=== PATIENT | male | born 1950 | race Caucasian/White ===

== ENCOUNTER 2016-05-17 11:55 | Inpatient (IN) | payer BC ==
[~2016-05-17] VITALS: Ht 182.9 cm; Wt 72.6 kg
[2016-05-17 12:29] LABS: BASOPHILS # (AUTO) 2.6 /CMM (0.0-0.2); EOSINOPHILS # (AUTO) 0.1 /CMM (0.0-0.7); EOSINOPHILS % (AUTO) 0.3 % (0.0-6.0); HEMATOCRIT 43 % (39-51); HEMOGLOBIN 14.5 g/dL (13.5-17.5); LYMPHOCYTES # (AUTO) 4.8 /CMM (0.8-4.8); LYMPHOCYTES % (AUTO) 26.7 % (20.0-44.0); MEAN CORPUSCULAR HEMOGLOBIN 32 PG (26.0-33.0); MEAN CORPUSCULAR HGB CONC 33 g/dl (31.0-36.0); MEAN CORPUSCULAR VOLUME 97 fL (80-96); MONOCYTES # (AUTO) 0.9 /CMM (0.1-1.30); MONOCYTES % (AUTO) 4.8 % (2.0-12.0); NEUTROPHILS # (AUTO) 9.6 /CMM (1.8-8.9); NEUTROPHILS % (AUTO) 53.8 % (43.0-81.0); PLATELET COUNT (AUTO) 319 /CMM (150-450); RED BLOOD CELL COUNT(AUTO) 4.48 MIL/uL (4.5-6.0)
[2016-05-17 12:30] LABS: BASOPHILS % (AUTO) 14.4 % (0.0-2.0); DIFF TOTAL % 100 %
[2016-05-17] MEDS ORDERED: IV NS 0.9% 1,000 ML BAG IV ONE ×2 (12:30→13:30)
[2016-05-17] MEDS ORDERED: IV SET PRIMARY 1 EA INFUS.SET MC ONE ×2 (12:34→13:56)
[2016-05-17] MEDS ORDERED: IV NS 0.9% 1,000 ML ONE (12:34)
[2016-05-17 12:37] LABS: ANION GAP 12 (5-14); CALCIUM, SERUM 7.6 mg/dL (8.5-10.1); CARBON DIOXIDE 30 mmol/L (21-32); CHLORIDE 96 mmol/L (98-107); CREATININE 0.6 mg/dL (0.6-1.3); GFR 136 mL/min (>60); GLUCOSE 121 mg/dL (74-106); POTASSIUM 3.2 mmol/L (3.5-5.1); SODIUM SERUM 134 mmol/L (136-145); UREA NITROGEN, BLOOD 5 mg/dL (7-18)
[2016-05-17 12:53] LABS: ALANINE AMINOTRANSFERASE 15 U/L (12-78); ASPARTATE AMINOTRANSFERASE 36 U/L (15-37); BILIRUBIN,DIRECT 0.5 mg/dL (0.0-0.2); INDIRECT BILIRUBIN 0.5 mg/dL (0.0-1.1); SALICYLATE 2.8 mg/dL (2.8-20.0); TOTAL PROTEIN, SERUM 6.8 g/dL (6.4-8.2)
[2016-05-17 12:54] LABS: ACETAMINOPHEN 0 ug/ml (10-30)
[2016-05-17 12:58] LABS: INR 1.4 (0.87-1.13); PROTHROMBIN TIME 14.7 SECS (9.5-12.7)
[2016-05-17 13:28] LABS: ADD UA MICROSCOPIC YES; KETONES,URINE Negative (NEGATIVE); LEUKOCYTE ESTERASE ,URINE Negative (NEGATIVE); PH,URINE 8.5 (5.0-8.0)
[2016-05-17] MEDS ORDERED: IV NS 0.9% 250 ML IV ONE (13:28)
[2016-05-17] MEDS ORDERED: IOHEXOL-300 100 ML VIAL IV ONE (13:28)
[2016-05-17] MEDS ORDERED: CT SWABBABLE VALVE TRANS SET 1 EA INFUS.SET MC ONE (13:28)
[2016-05-17 13:29] LABS: ADD URINE CULTURE NO; WBC,URINE 0-2 /HPF (0-3)
[2016-05-17] MEDS ORDERED: VANCOMYCIN 1 GM in IV D5W 250 ML IV ONE (13:30)
[2016-05-17] MEDS ORDERED: PIPERACILLIN /TAZOBACTAM 3.375 G in IV D5W 50 ML IV ONE (13:30)
[2016-05-17] MEDS ORDERED: LEVOFLOXACIN 750 MG /D5W 150ML 150 ML IV ONE ×2 (13:30→13:56)
[2016-05-17 13:34] LABS: CANNABINOID, URINE NEGATIVE (NEGATIVE); PHENCYCLIDINE SCREEN,URINE NEGATIVE (NEGATIVE)
[2016-05-17 13:50] LABS: LYMPHOCYTES % (MANUAL) 20 % (16-48); PLATELET ESTIMATE ADEQUATE
[2016-05-17] MEDS ORDERED: IV NS 0.9% 2,000 ML ONE (13:56)
[2016-05-17] MEDS ORDERED: IV SET PRIMARY PUMP SET 1 EA INFUS.SET MC ONE ×2 (13:57→19:39)
[2016-05-17] MEDS ORDERED: CITA40TA11 PO (13:58)
[2016-05-17] MEDS ORDERED: GABA-534 PO (13:58)
[2016-05-17] MEDS ORDERED: HYDR-3028 PO (13:58)
[2016-05-17] MEDS ORDERED: IBUP-1482 PO (13:58)
[2016-05-17] MEDS ORDERED: TIOT18CA3 IH (13:58)
[2016-05-17] MEDS ORDERED: CLON1TAB4 PO (13:58)
[2016-05-17] MEDS ORDERED: FLUT1DIS3 IH (13:58)
[2016-05-17] MEDS ORDERED: DISU250T7 PO (13:59)
[2016-05-17] MEDS ORDERED: ATOR10TA PO (14:00)
[2016-05-17 17:15] VITALS: BP 111/70
[2016-05-17] MEDS ORDERED: PIPERACILLIN /TAZOBACTAM 3.375 G in IV D5W 50 ML IV SCH ×4 (18:00)
[2016-05-17] MEDS: NICOTINE PATCH (14MG) 14 MG PATCH.TD24 TD SCH (18:08)
[2016-05-17] MEDS: NYSTATIN (PYXIS) 500,000 UNIT/5 ML ORAL.SUSP PO SCH (18:08)
[2016-05-17] MEDS: FLUCONAZOLE (100 MG) 100 MG TABLET PO SCH (18:08)
[2016-05-17] MEDS ORDERED: IV NS 0.9% 1,000 ML IV PRN (18:10)
[2016-05-17] MEDS ORDERED: HYDROCODONE/APAP 5/325MG 1 EACH TABLET PO PRN (18:30)
[2016-05-17] MEDS ORDERED: LEVOFLOXACIN 750 MG /D5W 150ML 750 MG in PREMIX 1 EA IV SCH (18:30)
[2016-05-17] MEDS ORDERED: MAGNESIUM HYDROXIDE 30 ML UDC PO PRN (18:30)
[2016-05-17] MEDS: PANTOPRAZOLE 40 MG TABLET.DR PO SCH (18:30)
[2016-05-17] MEDS: THIAMINE HCL 100 MG TABLET PO SCH (18:30)
[2016-05-17] MEDS ORDERED: ONDANSETRON HCL/PF 4 MG/2 ML VIAL IVP PRN (18:30)
[2016-05-17] MEDS ORDERED: Z GUARD REMEDY 2 OZ OINT TP PRN (18:30)
[2016-05-17] MEDS ORDERED: MAG HYDROX/AL HYDROX/SIMETH 30 ML UDC PO PRN (18:30)
[2016-05-17] MEDS ORDERED: ACETAMINOPHEN 325 MG TABLET PO PRN (18:30)
[2016-05-17] MEDS ORDERED: FEE PK DOSING 1 MIN EA MC ONE (18:41)
[2016-05-17] MEDS ORDERED: SECONDARY IV SET 1 EA INFUS.SET MC ONE (19:39)
[2016-05-17] MEDS: PIPERACILLIN /TAZOBACTAM 4.5 G in IV D5W 50 ML IV SCH (19:43)
[2016-05-17 20:00] VITALS: BP 106/74
[2016-05-17 20:02] VITALS: BP 106/74
[2016-05-17] MEDS: ZOLPIDEM TARTRATE 5 MG TABLET PO PRN (21:07)
[2016-05-17] MEDS ORDERED: IV PREMIX NS +20MEQ KCL 1 L IV ONE (23:49)
[2016-05-17] MEDS: Potassium Chloride 20 MEQ in IV NS 0.9% 1,000 ML IV PRN (23:58)
[2016-05-18] VITALS (8 sets, daily range): BP systolic 100–112; BP diastolic 61–72
[2016-05-18] MEDS ORDERED: ZOLPIDEM TARTRATE 5 MG TABLET ONE (00:09)
[2016-05-18] MEDS: ZOLPIDEM TARTRATE 5 MG TABLET PO PRN ×2 (00:12→21:51)
[2016-05-18] MEDS: VANCOMYCIN 1 GM in IV D5W 250 ML IV SCH ×2 (00:16→12:25)
[2016-05-18] MEDS ORDERED: ZOLPIDEM TARTRATE 5 MG TABLET PO ONE (00:30)
[2016-05-18] MEDS ORDERED: ZOLPIDEM TARTRATE 5 MG TABLET PO PRN (00:30)
[2016-05-18] MEDS: PIPERACILLIN /TAZOBACTAM 4.5 G in IV D5W 50 ML IV SCH ×4 (01:10→17:30)
[2016-05-18 07:03] LABS: CHOLESTEROL 59 mg/dL (<200); HDL CHOLESTEROL < 10 mg/dL (40-60); LDL 38 mg/dL (0-99); TRIGLYCERIDES 87 mg/dL (30-150)
[2016-05-18 07:05] LABS: BASOPHILS % (AUTO) 0.1 % (0.0-2.0); DIFF TOTAL % 100 %; EOSINOPHILS # (AUTO) 0.1 /CMM (0.0-0.7); EOSINOPHILS % (AUTO) 0.4 % (0.0-6.0); HEMATOCRIT 39 % (39-51); HEMOGLOBIN 13.2 g/dL (13.5-17.5); LYMPHOCYTES # (AUTO) 2.4 /CMM (0.8-4.8); LYMPHOCYTES % (AUTO) 15.2 % (20.0-44.0); MEAN CORPUSCULAR HEMOGLOBIN 33 PG (26.0-33.0); MEAN CORPUSCULAR HGB CONC 34 g/dl (31.0-36.0); MEAN CORPUSCULAR VOLUME 97 fL (80-96); MONOCYTES # (AUTO) 0.5 /CMM (0.1-1.30); MONOCYTES % (AUTO) 3.1 % (2.0-12.0); NEUTROPHILS # (AUTO) 12.7 /CMM (1.8-8.9); NEUTROPHILS % (AUTO) 81.2 % (43.0-81.0); PLATELET COUNT (AUTO) 295 /CMM (150-450); RED BLOOD CELL COUNT(AUTO) 4.01 MIL/uL (4.5-6.0); WHITE BLOOD COUNT (AUTO) 15.7 K/uL (4.3-11.0)
[2016-05-18 07:15] LABS: ALANINE AMINOTRANSFERASE 16 U/L (12-78); ANION GAP 13 (5-14); ASPARTATE AMINOTRANSFERASE 43 U/L (15-37); BILIRUBIN,TOTAL 0.8 mg/dL (0.2-1.0); CALCIUM, SERUM 7.1 mg/dL (8.5-10.1); CARBON DIOXIDE 26 mmol/L (21-32); CHLORIDE 102 mmol/L (98-107); CREATININE 0.6 mg/dL (0.6-1.3); GFR 136 mL/min (>60); GLUCOSE 98 mg/dL (74-106); PHOSPHORUS 2.3 mg/dL (2.5-4.9); SODIUM SERUM 138 mmol/L (136-145); TOTAL PROTEIN, SERUM 6.2 g/dL (6.4-8.2); UREA NITROGEN, BLOOD 2 mg/dL (7-18)
[2016-05-18 07:18] LABS: ALBUMIN 0.9 g/dL (3.4-5.0)
[2016-05-18] MEDS: NYSTATIN (PYXIS) 500,000 UNIT/5 ML ORAL.SUSP PO SCH ×3 (09:12→16:14)
[2016-05-18] MEDS: NICOTINE PATCH (14MG) 14 MG PATCH.TD24 TD SCH (09:12)
[2016-05-18] MEDS: THIAMINE HCL 100 MG TABLET PO SCH (09:12)
[2016-05-18] MEDS: PANTOPRAZOLE 40 MG TABLET.DR PO SCH (09:12)
[2016-05-18] MEDS: FLUCONAZOLE (100 MG) 100 MG TABLET PO SCH (09:12)
[2016-05-18] MEDS: IPRATROPIUM NEB FS 0.5 MG/2.5 ML AMPUL.NEB NEB SCH ×4 (11:11→23:28)
[2016-05-18] MEDS: ALBUTEROL FS 2.5 MG/0.5 ML VIAL.NEB NEB SCH ×4 (11:11→23:28)
[2016-05-18] MEDS ORDERED: SECONDARY IV SET 1 EA INFUS.SET MC ONE (11:12)
[2016-05-18] MEDS ORDERED: IV SET PRIMARY PUMP SET 1 EA INFUS.SET MC ONE (11:27)
[2016-05-18] MEDS: Magnesium 1GM/D5W 100ML PREMIX 100 ML IV SCH ×2 (11:27→12:25)
[2016-05-18 11:31] LABS: BAND % (MANUAL) 2 % (0.0-5.0); EOSINOPHILS % (MANUAL) 2 % (0-4); LYMPHOCYTES % (MANUAL) 9 % (16-48)
[2016-05-18 11:32] LABS: ANISOCYTOSIS 1+
[2016-05-18] MEDS: LEVOFLOXACIN 750 MG /D5W 150ML 150 ML IV SCH (14:02)
[2016-05-18] MEDS ORDERED: K PHOS NEUTRAL 250 MG TABLET PO ONE (16:00)
[2016-05-18] MEDS: LACTOBACILLUS RHAMNOSUS GG 1 EACH CAP.SPRINK PO SCH (16:14)
[2016-05-18] MEDS ORDERED: POTASSIUM CHLORIDE 20 MEQ TAB.PRT.SR PO ONE ×2 (22:00→22:21)
[2016-05-19] MEDS: Potassium Chloride 20 MEQ in IV NS 0.9% 1,000 ML IV PRN (00:46)
[2016-05-19] MEDS: PIPERACILLIN /TAZOBACTAM 4.5 G in IV D5W 50 ML IV SCH ×5 (00:47→23:11)
[2016-05-19] MEDS: ALBUTEROL FS 2.5 MG/0.5 ML VIAL.NEB NEB SCH ×6 (03:30→23:30)
[2016-05-19] MEDS: IPRATROPIUM NEB FS 0.5 MG/2.5 ML AMPUL.NEB NEB SCH ×6 (03:30→23:30)
[2016-05-19 07:44] LABS: CALCIUM, SERUM 7.2 mg/dL (8.5-10.1); PHOSPHORUS 2.8 mg/dL (2.5-4.9); POTASSIUM 2.9 mmol/L (3.5-5.1)
[2016-05-19 08:00] VITALS: BP 103/60
[2016-05-19 08:34] LABS: BASOPHILS % (AUTO) 0.3 % (0.0-2.0); DIFF TOTAL % 100 %; EOSINOPHILS # (AUTO) 0.1 /CMM (0.0-0.7); EOSINOPHILS % (AUTO) 0.6 % (0.0-6.0); HEMATOCRIT 40 % (39-51); HEMOGLOBIN 13.4 g/dL (13.5-17.5); LYMPHOCYTES % (AUTO) 15.6 % (20.0-44.0); MEAN CORPUSCULAR HEMOGLOBIN 32 PG (26.0-33.0); MEAN CORPUSCULAR HGB CONC 33 g/dl (31.0-36.0); MEAN CORPUSCULAR VOLUME 97 fL (80-96); MONOCYTES # (AUTO) 0.5 /CMM (0.1-1.30); MONOCYTES % (AUTO) 3.6 % (2.0-12.0); NEUTROPHILS % (AUTO) 79.9 % (43.0-81.0); PLATELET COUNT (AUTO) 302 /CMM (150-450); RED BLOOD CELL COUNT(AUTO) 4.15 MIL/uL (4.5-6.0); WHITE BLOOD COUNT (AUTO) 12.5 K/uL (4.3-11.0)
[2016-05-19 08:40] LABS: CREATININE 0.7 mg/dL (0.6-1.3)
[2016-05-19] MEDS: NYSTATIN (PYXIS) 500,000 UNIT/5 ML ORAL.SUSP PO SCH ×3 (08:55→16:56)
[2016-05-19] MEDS: PANTOPRAZOLE 40 MG TABLET.DR PO SCH (08:55)
[2016-05-19] MEDS: FLUCONAZOLE (100 MG) 100 MG TABLET PO SCH (08:55)
[2016-05-19] MEDS: NICOTINE PATCH (14MG) 14 MG PATCH.TD24 TD SCH (08:55)
[2016-05-19] MEDS: LACTOBACILLUS RHAMNOSUS GG 1 EACH CAP.SPRINK PO SCH ×2 (08:55→16:56)
[2016-05-19] MEDS: THIAMINE HCL 100 MG TABLET PO SCH (08:55)
[2016-05-19 09:41] LABS: BAND % (MANUAL) 5 % (0.0-5.0); EOSINOPHILS % (MANUAL) 1 % (0-4); LYMPHOCYTES % (MANUAL) 15 % (16-48); PLATELET ESTIMATE ADEQUATE
[2016-05-19 09:42] LABS: ANISOCYTOSIS 1+
[2016-05-19] MEDS: POTASSIUM CHLORIDE 20 MEQ TAB.PRT.SR PO SCH ×2 (10:35→11:39)
[2016-05-19] MEDS: Magnesium 1GM/D5W 100ML PREMIX 100 ML IV SCH ×2 (10:36→11:39)
[2016-05-19] MEDS: LEVOFLOXACIN 750 MG /D5W 150ML 150 ML IV SCH (13:09)
[2016-05-19 16:00] VITALS: BP_SYST 101; BP_SYST 103; BP_DIAS 60; BP_DIAS 62
[2016-05-19 18:00] VITALS: BP 103/60
[2016-05-19 20:00] VITALS: BP 133/92
[2016-05-19] MEDS: ZOLPIDEM TARTRATE 5 MG TABLET PO PRN (22:29)
[2016-05-20] MEDS: IPRATROPIUM NEB FS 0.5 MG/2.5 ML AMPUL.NEB NEB SCH ×6 (03:30→23:30)
[2016-05-20] MEDS: ALBUTEROL FS 2.5 MG/0.5 ML VIAL.NEB NEB SCH ×6 (03:30→23:30)
[2016-05-20] MEDS: PIPERACILLIN /TAZOBACTAM 4.5 G in IV D5W 50 ML IV SCH ×3 (05:15→17:07)
[2016-05-20 07:47] LABS: CALCIUM, SERUM 7.4 mg/dL (8.5-10.1); CREATININE 0.6 mg/dL (0.6-1.3); POTASSIUM 3.3 mmol/L (3.5-5.1)
[2016-05-20 08:00] VITALS: BP 131/84
[2016-05-20] MEDS: THIAMINE HCL 100 MG TABLET PO SCH (08:34)
[2016-05-20] MEDS: NICOTINE PATCH (14MG) 14 MG PATCH.TD24 TD SCH (08:34)
[2016-05-20] MEDS: NYSTATIN (PYXIS) 500,000 UNIT/5 ML ORAL.SUSP PO SCH ×3 (08:34→16:00)
[2016-05-20] MEDS: LACTOBACILLUS RHAMNOSUS GG 1 EACH CAP.SPRINK PO SCH ×2 (08:34→16:00)
[2016-05-20] MEDS: FLUCONAZOLE (100 MG) 100 MG TABLET PO SCH (08:34)
[2016-05-20] MEDS: PANTOPRAZOLE 40 MG TABLET.DR PO SCH (09:05)
[2016-05-20] MEDS: Potassium Chloride 20 MEQ in IV NS 0.9% 1,000 ML IV PRN (12:05)
[2016-05-20] MEDS: LEVOFLOXACIN 750 MG /D5W 150ML 150 ML IV SCH (13:29)
[2016-05-20] MEDS ORDERED: POTASSIUM CHLORIDE 20 MEQ TAB.PRT.SR PO ONE (15:30)
[2016-05-20 16:04] VITALS: BP 115/78
[2016-05-20 20:00] VITALS: BP 100/70
[2016-05-20] MEDS: ZOLPIDEM TARTRATE 5 MG TABLET PO PRN (20:55)
[2016-05-20 21:00] VITALS: BP 95/70
[2016-05-21] MEDS: PIPERACILLIN /TAZOBACTAM 4.5 G in IV D5W 50 ML IV SCH ×4 (00:08→17:25)
[2016-05-21] MEDS: IPRATROPIUM NEB FS 0.5 MG/2.5 ML AMPUL.NEB NEB SCH ×6 (03:30→23:42)
[2016-05-21] MEDS: ALBUTEROL FS 2.5 MG/0.5 ML VIAL.NEB NEB SCH ×6 (03:30→23:42)
[2016-05-21 07:23] LABS: CALCIUM, SERUM 7.5 mg/dL (8.5-10.1); CREATININE 0.6 mg/dL (0.6-1.3); POTASSIUM 3.8 mmol/L (3.5-5.1)
[2016-05-21 08:00] VITALS: BP 121/83
[2016-05-21] MEDS: FLUCONAZOLE (100 MG) 100 MG TABLET PO SCH (09:00)
[2016-05-21] MEDS: NICOTINE PATCH (14MG) 14 MG PATCH.TD24 TD SCH (09:00)
[2016-05-21] MEDS: LACTOBACILLUS RHAMNOSUS GG 1 EACH CAP.SPRINK PO SCH ×2 (09:00→16:07)
[2016-05-21] MEDS: PANTOPRAZOLE 40 MG TABLET.DR PO SCH (09:00)
[2016-05-21] MEDS: NYSTATIN (PYXIS) 500,000 UNIT/5 ML ORAL.SUSP PO SCH ×3 (09:00→16:07)
[2016-05-21] MEDS: THIAMINE HCL 100 MG TABLET PO SCH (09:00)
[2016-05-21] MEDS: Potassium Chloride 20 MEQ in IV NS 0.9% 1,000 ML IV PRN (12:08)
[2016-05-21] MEDS: LEVOFLOXACIN 750 MG /D5W 150ML 150 ML IV SCH (13:17)
[2016-05-21 16:00] VITALS: BP 113/78
[2016-05-21 20:00] VITALS: BP 121/85
[2016-05-21] MEDS: ZOLPIDEM TARTRATE 5 MG TABLET PO PRN (23:42)
[2016-05-22] MEDS: PIPERACILLIN /TAZOBACTAM 4.5 G in IV D5W 50 ML IV SCH ×3 (00:13→11:48)
[2016-05-22] MEDS: IPRATROPIUM NEB FS 0.5 MG/2.5 ML AMPUL.NEB NEB SCH ×3 (03:30→11:46)
[2016-05-22] MEDS: ALBUTEROL FS 2.5 MG/0.5 ML VIAL.NEB NEB SCH ×3 (03:30→11:46)
[2016-05-22 07:53] LABS: CALCIUM, SERUM 7.6 mg/dL (8.5-10.1); CREATININE 0.6 mg/dL (0.6-1.3); POTASSIUM 3.3 mmol/L (3.5-5.1)
[2016-05-22 08:00] VITALS: BP_SYST 113; BP_SYST 123; BP_DIAS 75; BP_DIAS 84
[2016-05-22] MEDS: PANTOPRAZOLE 40 MG TABLET.DR PO SCH (08:34)
[2016-05-22] MEDS: THIAMINE HCL 100 MG TABLET PO SCH (08:34)
[2016-05-22] MEDS: NYSTATIN (PYXIS) 500,000 UNIT/5 ML ORAL.SUSP PO SCH ×2 (08:34→12:54)
[2016-05-22] MEDS: NICOTINE PATCH (14MG) 14 MG PATCH.TD24 TD SCH (08:34)
[2016-05-22] MEDS: FLUCONAZOLE (100 MG) 100 MG TABLET PO SCH (08:34)
[2016-05-22] MEDS: LACTOBACILLUS RHAMNOSUS GG 1 EACH CAP.SPRINK PO SCH (08:34)
[2016-05-22] MEDS ORDERED: POTASSIUM CHLORIDE 20 MEQ TAB.PRT.SR PO ONE (10:00)
== END 2016-05-22 15:15 | disposition home or self-care (01) | DRG 871 ==
LOC: ER 11:59 → TELE 16:34 → MED 05-18 11:27
PROVIDERS: ADMIT Internal Medicine; ATTEND Internal Medicine
DX: A41.9 Sepsis, unspecified organism (principal); J69.0 Pneumonitis due to inhalation of food and vomit; E43 Unspecified severe protein-calorie malnutrition; G92 Toxic encephalopathy; E87.1 Hypo-osmolality and hyponatremia; B37.0 Candidal stomatitis; I10 Essential (primary) hypertension; E87.6 Hypokalemia; J44.9 Chronic obstructive pulmonary disease, unspecified; E78.5 Hyperlipidemia, unspecified; F32.9 Major depressive disorder, single episode, unspecified; F41.9 Anxiety disorder, unspecified; F17.200 Nicotine dependence, unspecified, uncomplicated; F10.229 Alcohol dependence with intoxication, unspecified; E87.8 Other disorders of electrolyte and fluid balance, not elsewhere classified; E04.2 Nontoxic multinodular goiter
CPT/HCPCS: 36415; 70450-TC; 71010-TC; 71260-TC; 76536-TC; 80048-TC; 80053-TC; 80061-TC; 80076-TC; 80202-TC; 80305; 81000-TC; 82140-TC; 82746; 83605-TC; 83735-TC; 84100-TC; 84443-TC; 84484-TC; 85025-TC; 85730-TC; 87040-TC; 87070-TC; 87081-TC; 94799-TC; 97001-TC; 97116-TC; 97530-TC; A4216; A4606; G6038-TC; G6039-TC; G6040-TC; J1956; J2543; J3370; J3475; J3480; J3490; J7030; J7050; J7060; Q9967; Z7610